=== PATIENT | female | born 1990 | race Caucasian/White ===

== ENCOUNTER 2016-05-25 11:31 | Emergency (ER) | payer MEDICAID, OTHER ==
[~2016-05-25] VITALS: Ht 162.6 cm; Wt 63.5 kg
[2016-05-25 11:32] VITALS: BP 143/79
[2016-05-25] MEDS ORDERED: NO HOME MEDS (11:40)
[2016-05-25] MEDS ORDERED: CYCL10TA PO (12:29)
[2016-05-25] MEDS ORDERED: MOTR200T44 PO (12:29)
[2016-05-25] MEDS ORDERED: CYCLOBENZAPRINE 10 MG TAB PO ONE (12:30)
== END 2016-05-25 12:38 | disposition home or self-care (01) ==
LOC: M ED 12:32
DX: R07.89 Other chest pain (principal); F17.210 Nicotine dependence, cigarettes, uncomplicated